=== PATIENT | female | born 1955 | race Caucasian/White ===

== ENCOUNTER 2016-11-25 17:04 | Emergency (ER) ==
[2016-11-25 17:18] VITALS: BP 133/85; TEMP 98; BMI 25.0
[2016-11-25 17:46] LABS: BASOPHILS % (AUTO) 0.3 % (0.0-3.0); EOSINOPHILS # (AUTO) 0.1 K/ul (0.0-0.7); HEMATOCRIT 44.1 % (37.0-47.0); HEMOGLOBIN 15.1 g/dl (12.0-16.0); IMMATURE GRANULOCYTE % (AUTO) 0.3 % (0.0-5.0); LYMPHOCYTES # (AUTO) 1.7 K/uL (0.60-3.4); LYMPHOCYTES % (AUTO) 18.4 (10.0-50.0); MEAN CORPUSCULAR HEMOGLOBIN 30.5 pg (27.0-31.0); MEAN CORPUSCULAR HGB CONC 34.2 (31.8-35.4); MEAN CORPUSCULAR VOLUME 89.1 fl (81.0-99.0); MONOCYTES # (AUTO) 0.6 K/uL (0.4-2.0); MONOCYTES % (AUTO) 6.2 (0-10); NEUTROPHILS # (AUTO) 6.8 K/ul (2.0-6.9); NEUTROPHILS % (AUTO) 73.8; PLATELET COUNT 318 10^3/uL (140-440); RED BLOOD COUNT 4.95 10^6/ul (4.20-5.40); WHITE BLOOD COUNT 9.24 K/ul (4.6-10.2)
[2016-11-25] MEDS ORDERED: ANECTINE IVP STA (17:53)
[2016-11-25] MEDS ORDERED: NORCURON IVP STA ×4 (17:53→20:28)
[2016-11-25 18:06] LABS: ACETAMINOPHEN < 3 ug/ml (10-30); ALANINE AMINOTRANSFERASE 16 U/L (12-78); ALBUMIN 4.3 g/dL (3.4-5.0); ALBUMIN/GLOBULIN RATIO 1.39; ALKALINE PHOSPHATASE 155 U/L (53-141); ANION GAP 14.3; ASPARTATE AMINO TRANSFERASE 17 U/L (15-37); BILIRUBIN,TOTAL 0.67 mg/dL (0.00-1.20); BLOOD UREA NITROGEN 16 mg/dL (7-18); BUN/CREATININE RATIO 19.51; CALCIUM 9.3 mg/dL (8.2-10.2); CARBON DIOXIDE 24 mmol/L (23-31); CHLORIDE 108 mmol/L (98-107); CREATININE 0.82 mg/dL (0.60-1.30); GLUCOSE 159 mg/dL (82-115); POTASSIUM 3.3 mmol/L (3.5-5.10); SALICYLATE < 5.0 mg/dL (2.8-20.0); SODIUM 143 mmol/L (136-145); TOTAL PROTEIN 7.4 g/dL (5.8-8.1)
--- NOTE | 2016-11-25 18:22 | ED.PDOC ---
[id number] by Physician: 17:09 (ARRIVED STUPROUS BUT AROUSABLE TOO 36 ZANAFLEX 4 HOURS AGO) Mode of Arrival: Wheelchair Information Source: Patient Exam Limitations: No limitations Nursing and Triage Documentation Reviewed and Agree: Yes (POISION CONTROL STATED NOT TO LAVAGE, SUPPORTIVE CARE ) <IMELDAERNSTVIVIANA - Last Filed: 12/06/16 08:50> ED Provider: Dr. VIVIANA DIAZ ([facility]) (VIVIANA DIAZ) Chief Complaint: Overdose Psychological Complaint Exam - Overdose/Toxic Exposure Complaint/Exam Patient Complains Of: Overdose, Toxic Exposure (ZANAFLEX) Ingestion Occurred: 4 HOURS Exposure Occurred: 17:10 Ingestion: Medication (NO OTHER MEDS USED ) Treatment Prior To Arrival: Other (INTUBATED AND RESUSCIATED 1742) Gag Reflex Present: Yes Inability To Swallow Present: Yes Drooling Present: No Miosis Present: Yes Nystagmus Present: No Speech: Present: Slurred Gait: Present: Unable Patient Uncooperative For Exam: No Mood: Present: Agitated Appearance: Present: Clean Thought Process: Present: Illogical Judgement: Impaired Differential Diagnoses: Intentional Drug OD Quality Indicator For Non-Traumatic Chest Pain/Syncope: EKG Performed <JOEVIVIANA - Last Filed: 12/06/16 08:50> Review of Systems - Review Of Systems Constitutional: Reports: Malaise Eyes: Reports: Other (PINPOINT SLUGGISH TO REACT) Ears, Nose, Mouth, Throat: Reports: No symptoms Respiratory: Reports: No symptoms Cardiac: Reports: No symptoms GI: Reports: No symptoms : Reports: No symptoms Musculoskeletal: Reports: No symptoms Skin: Reports: No symptoms Neurological: Reports: Anxiety, Depressed, Emotional problems Endocrine: Reports: No symptoms Hematologic/Lymphatic: Reports: No symptoms All Other Systems: Reviewed and Negative <JOEVIVIANA - Last Filed: 12/06/16 08:50> Past Medical History - Past Medical History Previously Healthy: No Endocrine: Reports: None Cardiovascular: Reports: Unknown Respiratory: Reports: Unknown Hematological: Reports: Unknown Gastrointestinal: Reports: Unknown Genitourinary: Reports: Unknown Neuro/Psych: Reports: Anxiety (SUICIDE ATTEMPT), Depression, Unknown Musculoskeletal: Reports: Unknown Cancer: Reports: Unknown Last Menstrual Period: UNKNOWN - Surgical History General Surgical History: Reports: Unknown - Family History Family History: Reports: Unknown - Social History Smoking Status: Current every day smoker, Heavy tobacco smoker Hx Substance Use: Yes ([employer] Hx DUE TO DRUG USE) Alcohol Screening: None <IMELDAERNSTVIVIANA - Last Filed: 12/06/16 08:50> Physical Exam - Physical Exam Appearance: Ill-appearing Ill-appearing: Severe Pain Distress: Severe Eyes: Conjunctiva pale (PUPILS SLUGGISH PIPOINT) ENT: Ears normal, Nose normal, Oropharynx normal Neck: Supple Respiratory: Rhonchi Cardiovascular: Bradycardia GI/: Soft, Nontender, No masses, Bowel sounds normal, No Organomegaly Musculoskeletal: Normal strength, ROM intact, No edema, No calf tenderness Skin: Warm, Dry, Normal color Neurological: Sensation intact (on arrival but about few min later unresponsive except tor painfull stimuli ), Motor intact, Reflexes intact, Alert to pain, Unresponsive (GCS 9) Psychiatric: Depressed <IMELDAERNSTVIVIANA - Last Filed: 12/06/16 08:50> Interpretation - Radiology Interpretation Radiology Interpretation By: ED Physician Exam Interpreted: Portable CXR (ET IN PLACE BUT ADVANCED FURTHER LATER ) <IMELDAERNSTVIVIANA - Last Filed: 12/06/16 08:50> Procedures - Intubation Indication: Present: Respiratory Insufficiency, Altered Mental Status, Airway Protection Time of Intubation: 17:43 (first attempt intubation) Medications: Yes: Norcuron, Succinylcholine Type of Tube Used: Endotracheal Cricoid Pressure Used: No Tube Toro Used: Yes Number of Attempts: 1 Suction Used: Yes Glidescope Used: No CO2 Detector Used: Yes Lung Sounds Equal Bilaterally: Yes Intubation Complications: Present: No complications. Absent: Vomited Tube Inserted By: JOE Tube Placement Verified by X-ray: Yes (CXR AND ENDTIAL CO2 ) <JOEVIVIANA - Last Filed: 12/06/16 08:50> Re-Evaluation - Re-Evaluation Time of Re-Evaluation: 19:50 Status: Improved Vital Signs Stable: Yes Pain Level: 0 Appearance: NAD Lungs: Clear Skin: Warm and Dry Neuro: Alert and Oriented X3 CV: RRR <HALEY WAYNE - Last Filed: 11/25/16 19:51> - Re-Evaluation Time of Re-Evaluation: 19:00 Status: Improved Vital Signs Stable: Yes Appearance: Other (INTUBATED ON VENT) Lungs: Clear Skin: Warm and Dry Neuro: Other (PT IS ON PARALYTICS ON VENT HEMODYNAMICALLY STABLE) CV: RRR (SIGNED OUT TO SHERI ROSE SPOKE TO HER SON) <VIVIANA DIAZ - Last Filed: 12/06/16 08:50> Physician Notification - Case Discussed Physician Notified: dr [email or web address] Time of Notification: 19:52 <HALEY WAYNE - Last Filed: 11/25/16 19:51> - Case Discussed Physician Notified: SHERI Time of Notification: 19:00 <VIVIANA DIAZ - Last Filed: 12/06/16 08:50> Critical Care Note - Critical Care Note Total Time (mins): 15 <HALEY WAYNE - Last Filed: 11/25/16 19:51> - Critical Care Note Total Time (mins): 1 <VIVIANA DIAZ - Last Filed: 12/06/16 08:50> Course - Course Hematology/Chemistry: 11/25/16 17:40 11/25/16 17:40 <HALEY WAYNE - Last Filed: 11/25/16 19:51> - Course Hematology/Chemistry: 11/25/16 17:40 11/25/16 17:40 <VIVIANA DIAZ - Last Filed: 12/06/16 08:50> - Course Orders, Labs, Meds: Lab Review 11/25/16 11/25/16 11/25/16 17:40 18:26 18:38 WBC 9.24 RBC 4.95 Hgb 15.1 Hct 44.1 MCV 89.1 MCH 30.5 MCHC 34.2 RDW Coeff of Alejandra 13.4 Plt Count 318 Immature Gran % (Auto) 0.3 Neut % (Auto) 73.8 Lymph % (Auto) 18.4 [place] % (Auto) 6.2 Eos % (Auto) 1.0 Baso % (Auto) 0.3 Immature Gran # (Auto) 0.0 Neut # 6.8 Lymph # 1.7 [place] # 0.6 Eos # 0.1 Baso # 0.0 Puncture Site Rr O2 Saturation 100.0 ABG pH 7.476 H ABG pCO2 31.6 L ABG pO2 545.0 H ABG HCO3 23.3 ABG Total CO2 24 ABG Base Excess 0 Sylvester Test + O2 Delivery Device Vent FiO2 % 100.0 Sodium 143 Potassium 3.3 L Chloride 108 H Carbon Dioxide 24 Anion Gap 14.3 BUN 16 Creatinine 0.82 Estimated GFR (MDRD) 71.00 BUN/Creatinine Ratio 19.51 Glucose 159 H Calcium 9.3 Magnesium 2.4 H Total Bilirubin 0.67 AST 17 ALT 16 Alkaline Phosphatase 155 H Total Protein 7.4 Albumin 4.3 Globulin 3.1 Albumin/Globulin Ratio 1.39 Urine Color Yellow Urine Clarity Cloudy Urine pH 5.5 Ur Specific [place] >=1.030 Urine Protein Trace Urine Glucose (UA) Negative Urine Ketones Trace Urine Blood 2+ Urine Nitrite Negative Urine Bilirubin 2+ Urine Urobilinogen 1.0 Ur Leukocyte Esterase Negative Urine Microscopic RBC 2-5 Ur Squamous Epith Cells Not present Urine Mucus 3+ Salicylate Level mg/dL < 5.0 Urine Opiates Screen Negative Ur Oxycodone Screen Positive Urine Methadone Screen Negative Ur Propoxyphene Screen Negative Acetaminophen < 3 L Ur Barbiturates Screen Negative U Tricyclic Antidepress Negative Ur Phencyclidine Scrn Negative Ur Amphetamine Screen Positive U Methamphetamines Scrn Negative U Benzodiazepines Scrn Positive Urine Cocaine Screen Negative U Cannabinoids Screen Negative Plasma/Serum Alcohol < 10.0 Orders Category Date Time Status ABG DRAW REQUEST Stat CARDIO 11/25/16 19:00 Completed EKG-(ED ONLY) Stat CARDIO 11/25/16 17:28 Completed VENTILATOR Routine CARDIO 11/25/16 18:10 Completed TRANSFER TO OUTSIDE FACILITY .TO [facility] ( CARE 11/25/16 19:51 Active KLARISSA BOO) WRITE TRANSFER/SBAR NOTE ONCE CARE 11/25/16 19:51 Active DISCHARGE ASSESSMENT ONCE DISCHARGE 11/25/16 19:51 Active WRITE DISCHARGE NOTE ONCE DISCHARGE 11/25/16 19:51 Active ED ANTIQUE REPAIRER APPLIED ONCE EMERGENCY 11/25/16 17:28 Active ABG Stat LAB 11/25/16 18:38 Completed ACETAMINOPHEN Stat LAB 11/25/16 17:40 Completed BLOOD ALCOHOL Stat LAB 11/25/16 17:40 Completed CBC W/ AUTO DIFF Stat LAB 11/25/16 17:40 Completed COMPREHENSIVE METABOLIC PANEL Stat LAB 11/25/16 17:40 Completed DRUG SCREEN, URINE, RAPID Stat LAB 11/25/16 17:40 Completed MAGNESIUM Stat LAB 11/25/16 17:40 Completed SALICYLATE Stat LAB 11/25/16 17:40 Completed URINALYSIS C & S IF INDICATED Stat LAB 11/25/16 18:26 Completed Lorazepam Inj [Ativan] MEDS 11/25/16 19:18 Discontinued 2 mg .ROUTE .STK-MED ONE Lorazepam Inj [Ativan] MEDS 11/25/16 19:16 Discontinued 2 mg IVP ONCE STA Lorazepam Inj [Ativan] MEDS 11/25/16 20:32 Discontinued 2 mg IVP ONCE STA Succinylcholine Chloride [Anectine] MEDS 11/25/16 17:53 Discontinued 100 mg IVP ONCE STA Vecuronium Kiron [Norcuron] MEDS 11/25/16 18:38 Discontinued 2 mg IVP ONCE STA Vecuronium Kiron [Norcuron] MEDS 11/25/16 19:29 Discontinued 2 mg IVP ONCE STA Vecuronium Kiron [Norcuron] MEDS 11/25/16 20:28 Discontinued 2 mg IVP ONCE STA Vecuronium Kiron [Norcuron] MEDS 11/25/16 17:53 Discontinued 8 mg IVP ONCE STA CHEST, 1V AP ONLY Stat RADS 11/25/16 17:52 Completed Medications Discontinued Medications Generic Name Dose Route Start Last Admin Trade Name Freq PRN Reason Stop Dose Admin Lorazepam 2 mg 11/25/16 19:16 11/25/16 19:20 Ativan IVP 11/25/16 19:17 2 mg ONCE STA Administration Lorazepam 2 mg 11/25/16 20:32 11/25/16 20:32 Ativan IVP 11/25/16 20:33 2 mg ONCE STA Administration Succinylcholine Chloride 100 mg 11/25/16 17:53 11/25/16 17:39 Anectine IVP 11/25/16 17:54 100 mg ONCE STA Administration Vecuronium Kiron 8 mg 11/25/16 17:53 11/25/16 17:50 Norcuron IVP 11/25/16 17:54 8 mg ONCE STA Administration Vecuronium Kiron 2 mg 11/25/16 18:38 11/25/16 18:45 Norcuron IVP 11/25/16 18:39 2 mg ONCE STA Administration Vecuronium Kiron 2 mg 11/25/16 19:29 11/25/16 19:35 Norcuron IVP 11/25/16 19:30 2 mg ONCE STA Administration Vecuronium Kiron 2 mg 11/25/16 20:28 11/25/16 20:32 Norcuron IVP 11/25/16 20:29 2 mg ONCE STA Administration (HALEY WAYNE) (VIVIANA DIAZ) Vital Signs: Temp Pulse Resp BP Pulse Ox 11/25/16 18:10 19 11/25/16 17:09 98.0 F 72 20 133/85 97 (HALEY WAYNE) (VIVIANA DIAZ) Departure - Departure Time of Disposition: 19:50 Pt referred to PMD for follow-up: Yes Transfer Form Completed: Yes Disposition Discussed With: Family <HALEY WAYNE - Last Filed: 11/25/16 19:51> - Departure Pt referred to PMD for follow-up: Yes (transfered ) Transfer Form Completed: Yes Disposition Discussed With: Family <VIVIANA DIAZ - Last Filed: 12/06/16 08:50> - Departure Disposition: TSF [facility]ORT-TRM HOSP Discharge Problem: Drug overdose, Overdose Instructions: Depression (GEN) Condition: Critical Allergies/Adverse Reactions: Allergies acetaminophen [From Ultracet] Adverse Reaction (Verified 11/25/16 17:21) codeine Adverse Reaction (Verified 11/25/16 17:21) meperidine [From Demerol] Adverse Reaction (Verified 11/25/16 17:21) tramadol [From Ultracet] Adverse Reaction (Verified 11/25/16 17:21)
[2016-11-25 18:31] LABS: BILIRUBIN,URINE 2+ (NEGATIVE); KETONES,URINE Trace (NEGATIVE); LEUKOCYTE ESTERASE ,URINE Negative (NEGATIVE); NITRITE,URINE Negative (NEGATIVE); PH,URINE 5.5 (5-9); PROTEIN,URINE Trace (NEGATIVE); URINE, BLOOD 2+ (NEGATIVE)
[2016-11-25 18:43] LABS: COCAIN SCREEN,URINE NEGATIVE (NEGATIVE)
[2016-11-25 18:44] LABS: ABG BASE EXCESS 0 (-2.0-2.0); ABG HCO3 23.3 (22.0-26.0); ABG PCO2 31.6 mmHg (35-45); ABG PH 7.476 (7.35-7.45); ABG TCO2 24 (22.0-28.0)
[2016-11-25 18:46] LABS: ADD URINE MICROSCOPIC YES
--- NOTE | 2016-11-25 18:46 | DI ---
EXAM: Single view chest. HISTORY: Intubation. COMPARISON: None. FINDINGS: Endotracheal tube is in place with tip 4.4 cm above the una. The heart is normal in si ze. The pulmonary vascularity is within normal limits. A calcified granuloma overlies the right mi ddle lung zone. Otherwise no definite focal airspace opacity, pleural effusion, or pneumothorax is seen. The left first rib appears absent. Operative changes of the cervical spine are present. IMPRESSION: Satisfactory appearing endotracheal tube. No acute cardiopulmonary findings.
[2016-11-25] MEDS ORDERED: ATIVAN IVP STA ×2 (19:16→20:32)
[2016-11-25] MEDS: ATIVAN ONE ×2 (20:26→20:32)
== END 2016-11-25 20:15 | disposition short-term general hospital (02) ==
LOC: ED 17:04
DX: T42.8X1A Poisoning by antiparkinsonism drugs and other central muscle-tone depressants, accidental (unintentional), initial encounter (principal); R40.1 Stupor; F17.210 Nicotine dependence, cigarettes, uncomplicated
CPT/HCPCS: 36415; 80053; 80306; 80307; 81001; 82803; 83735; 85025; 93005; 93010; 94002; 96361; 96374; 96375; 96376; 99285

== ENCOUNTER 2016-11-25 20:35 | Outpatient (CLI) ==
[2016-11-25 17:18] VITALS: BMI 25.0
== END 2016-11-25 20:36 ==
LOC: AMBL 20:35
PROVIDERS: ATTEND Family Medicine
DX: T42.8X1A Poisoning by antiparkinsonism drugs and other central muscle-tone depressants, accidental (unintentional), initial encounter (principal)